=== PATIENT | female | born 1975 | race Caucasian/White ===

== ENCOUNTER 2018-03-13 12:06 | Emergency (ER) | payer OTHER ==
[2018-03-13 12:06] VITALS: BMI 29.0
[2018-03-13 12:25] VITALS: RESP 18; O2SAT 100
--- NOTE | 2018-03-13 12:52 | C.PDOC ---
History Of Present Illness 42 year old female with a history of asthma and a surgical history of cholecystectomy and appendectomy presents to the emergency department with complaints of vaginal bleeding with clots, cramping, suprapubic pain, bilateral lower flank pain, subjective fever and chills for the last two weeks. Patient states that she had her period before Thanksgi, and her bleeding started after her period was over. Patient states that she attempted to get an appointment with a doctor, but did not have an available appointment until June 19. She denies nausea and vomiting. Time Seen by Provider: 03/13/18 12:27 Chief Complaint (Nursing): Female Genitourinary History Per: Patient History/Exam Limitations: no limitations Onset/Duration Of Symptoms: Other (two weeks) Current Symptoms Are (Timing): Still Present Quality Of Discomfort: "Pain" Associated Symptoms: Other (headache). denies: Nausea, Vomiting Past Medical History Reviewed: Historical Data, Nursing Documentation, Vital Signs Vital Signs: Last Vital Signs Temp 99.0 F 03/13/18 12:24 Pulse 84 03/13/18 12:24 Resp 18 03/13/18 12:24 BP 139/85 03/13/18 12:24 Pulse Ox 100 03/13/18 12:24 - Medical History PMH: No Chronic Diseases Denies: Chronic Kidney Disease Surgical History: Appendectomy, Cholecystectomy - [facility] Procedures ENDOSCOPIC DILATION OF AMPULLA AND BILIARY DUCT (12/18/13) ENDOSCOPIC REMOVAL OF STONE(S) FROM BILIARY TRACT (12/18/13) ENDOSCOPIC SPHINCTEROTOMY AND PAPILLOTOMY (12/18/13) LAPAROSCOPIC CHOLECYSTECTOMY (12/18/13) Family History: States: No Known Family Hx - Social History Hx Tobacco Use: Yes Hx Alcohol Use: Yes Hx Substance Use: No - Immunization History Hx Tetanus Toxoid Vaccination: Yes Hx Influenza Vaccination: Yes Hx Pneumococcal Vaccination: Yes Review Of Systems Except As Marked, All Systems Reviewed And Found Negative. Gastrointestinal: Positive for: Abdominal Pain. Negative for: Nausea, Vomiting Genitourinary: Positive for: Vaginal Bleeding Musculoskeletal: Positive for: Back Pain Neurological: Positive for: Headache Physical Exam - Physical Exam Appears: Non-toxic, No Acute Distress Skin: Warm, Dry Head: Atraumatic, Normacephalic Eye(s): bilateral: Normal Inspection, PERRL, EOMI Neck: Normal, Supple Chest: Symmetrical, No Tenderness Cardiovascular: Rhythm Regular, No Murmur Respiratory: No Rales, No Rhonchi, No Wheezing Gastrointestinal/Abdominal: Soft, Tenderness (lower right and left suprapubic tenderness), No Guarding, No Rebound Neurological/Psych: Oriented x3, Normal Speech, Normal Cognition ED Course And Treatment - Laboratory Results Result Diagrams: 03/13/18 13:13 O2 Sat by Pulse Oximetry: 100 (RA) Pulse Ox Interpretation: Normal Medical Decision Making Medical Decision Making: Plan: CBC POC Urine HCG Quantitative Urinalysis US Pelvis US Pelvis/Transvaginal Disposition Counseled Patient/Family Regarding: Studies Performed, Diagnosis, Need For Followup - Disposition Referrals: [facility] at [facility] [Outside] Disposition: HOME/ ROUTINE Disposition Time: 16:00 Condition: STABLE Additional Instructions: Siga con mcmillan doctor, o la clinica. Instructions: Perimenopause Forms: Gen Discharge Inst Marshallese, [facility] (Marshallese) - POA Present On Arrival: None - Clinical Impression Clinical Impression: Perimenopausal menorrhagia - Scribe Statement The provider has reviewed the documentation as recorded by the Scribe (Geraldo Oreilly) Provider Attestation: All medical record entries made by the Scribe were at my direction and perso anel dictated by me. I have reviewed the chart and agree that the record accurately reflects my personal performance of the history, physical exam, medical decision making, and the department course for this patient. I have also personally directed, reviewed, and agree with the discharge instructions and disposition.
[2018-03-13 13:23] LABS: HEMOGLOBIN 12.5 g/dL (11.0-16.0); MEAN CORPUSCULAR HEMOGLOBIN 27.2 pg (27.0-31.0); MEAN CORPUSCULAR HGB CONC 32.8 g/dL (33.0-37.0); MEAN PLATELET VOLUME 9.2 fL (7.2-11.7); RBC 4.6 Mil/uL (3.80-5.20); RED CELL DISTRIBUTION WIDTH 18.1 % (11.5-14.5); WHITE BLOOD COUNT 5.6 K/uL (4.8-10.8)
[2018-03-13 13:32] LABS: HCG,QUALITATIVE URINE NEGATIVE (NEGATIVE)
[2018-03-13 13:38] LABS: SQUAMOUS EPITHIAL 1 /hpf (0-5); URINE BILIRUBIN NEGATIVE (NEGATIVE); URINE BLOOD 2+ (NEGATIVE); URINE CLARITY Clear (Clear); URINE COLOR Yellow (YELLOW); URINE GLUCOSE (UA) NORMAL (Normal); URINE LEUKOCYTE ESTERASE NEG Leu/uL (Negative); URINE PROTEIN NEGATIVE (NEGATIVE); URINE UROBILINOGEN NORMAL mg/dL (0.2-1.0)
[2018-03-13 15:09] VITALS: BP 144/87
--- NOTE | 2018-03-13 15:44 | US ---
Pelvic ultrasound HISTORY: Vaginal bleeding. Comparison: None available. Technique: Real-time sonography was performed through the pelvis utilizing transabdominal and transvaginal techniques Findings: Uterus: 10.7 x 5.2 x 4.2 centimeters. Heterogeneous echotexture. Anteverted. Endometrium is prominent measuring up to 1.3 centimeters. Nabothian cysts noted at the level of the cervix. Trace free fluid noted within the pelvic cul-de-sac. Right ovary: 2.5 x 2.2 x 2.3 centimeters. Normal flow. Left ovary: 2.8 x 2.0 x 2.6 centimeters. Normal flow. Complex cyst with internal septations and/or nodularity measuring 1.3 x 0.7 x 1.7 centimeters. Additional hypoechoic cyst measuring 1.1 x 1.3 x 1.6 centimeters. Impression: Heterogeneous bulky echotexture of the uterus. No discrete fibroid lesions identified. Prominence of the endometrium measuring up to 1.3 centimeters. Clinical correlation. Nabothian cysts noted at the level of the cervix. Trace free fluid within the pelvic cul-de-sac. Left ovarian cysts, one of which is complex measuring up to 1.7 centimeters. 4-6 week interval follow-up may be helpful if clinically indicated.
[2018-03-13 16:21] VITALS: PULSE 72; TEMP 98.7
== END 2018-03-13 16:28 | disposition home or self-care (01) ==
LOC: C.ER 12:06
DX: N92.0 Excessive and frequent menstruation with regular cycle (principal); Z78.0 Asymptomatic menopausal state

== ENCOUNTER 2018-05-19 18:21 | Emergency (ER) | payer OTHER ==
[2018-05-19 18:21] VITALS: BMI 29.0
[2018-05-19] MEDS ORDERED: Sodium Chloride 0.9% 1,000 ML IV ONE (19:16)
--- NOTE | 2018-05-19 19:16 | C.PDOC ---
History Of Present Illness Patient presents to the ER with a complaint of abdominal pain. Patient reports having frequent bowel movements but no diarrhea. Denies nausea or vomiting. Time Seen by Provider: 05/19/18 19:16 Chief Complaint (Nursing): Abdominal Pain History Per: Patient History/Exam Limitations: no limitations Onset/Duration Of Symptoms: Hrs Current Symptoms Are (Timing): Still Present Location Of Pain/Discomfort: RUQ Radiation Of Pain To:: None Quality Of Discomfort: Unable To Describe Associated Symptoms: denies: Nausea, Vomiting, Diarrhea Exacerbating Factors: None Alleviating Factors: None Recent travel outside of the [place]: No Past Medical History Reviewed: Historical Data, Nursing Documentation, Vital Signs Vital Signs: Last Vital Signs Temp 98 F 05/19/18 18:22 Pulse 87 05/19/18 18:22 Resp 18 05/19/18 18:22 BP 125/82 05/19/18 18:22 Pulse Ox 100 05/19/18 18:22 - Medical History PMH: Denies: Chronic Kidney Disease Surgical History: Appendectomy, Cholecystectomy - [facility] Procedures ENDOSCOPIC DILATION OF AMPULLA AND BILIARY DUCT (12/18/13) ENDOSCOPIC REMOVAL OF STONE(S) FROM BILIARY TRACT (12/18/13) ENDOSCOPIC SPHINCTEROTOMY AND PAPILLOTOMY (12/18/13) LAPAROSCOPIC CHOLECYSTECTOMY (12/18/13) Family History: States: No Known Family Hx - Social History Hx Tobacco Use: Yes Hx Alcohol Use: Yes Hx Substance Use: No - Immunization History Hx Tetanus Toxoid Vaccination: Yes Hx Influenza Vaccination: Yes Hx Pneumococcal Vaccination: Yes Review Of Systems Constitutional: Negative for: Fever, Chills Cardiovascular: Negative for: Chest Pain, Palpitations Respiratory: Negative for: Cough, Shortness of Breath Gastrointestinal: Positive for: Abdominal Pain. Negative for: Nausea, Vomiting, Diarrhea Neurological: Negative for: Weakness, Numbness Physical Exam - Physical Exam Appears: Non-toxic Skin: Warm, Dry Head: Normacephalic Oral Mucosa: Moist Chest: Symmetrical, No Tenderness Cardiovascular: Rhythm Regular Respiratory: No Rales, No Rhonchi, No Wheezing Gastrointestinal/Abdominal: Soft, Tenderness (RUQ), No Guarding, No Rebound, Other (Numerous surgical scars) Back: No CVA Tenderness Neurological/Psych: Oriented x3 ED Course And Treatment - Laboratory Results Result Diagrams: 05/19/18 19:26 05/19/18 19:26 O2 Sat by Pulse Oximetry: 100 (Room air) Pulse Ox Interpretation: Normal Progress Note: CT abd/pel, blood work, and urinalysis ordered. IV fluids and pepcid administered. Reevaluation Time: 22:49 Reassessment Condition: Improved Medical Decision Making Medical Decision Making: Upon provider reevaluation patient is feeling better, is medically stable, and requires no further treatment in the ED at this time. Patient will be discharged home with Rx for protonix . Counseling was provided and all questions were answered regarding diagnosis and need for follow up with the referred clinic. There is agreement to discharge plan. Return if symptoms persist or worsen. Disposition Counseled Patient/Family Regarding: Studies Performed, Diagnosis, Need For Followup, Rx Given - Disposition Referrals: [facility] at [facility] [Outside] [facility] [Outside] Disposition: HOME/ ROUTINE Disposition Time: 19:16 Condition: FAIR Additional Instructions: Please return if symptoms recur Prescriptions: Pantoprazole Sodium [Protonix] 40 mg PO DAILY #15 ect Instructions: Acid Reflux (Gastroesophageal Reflux Disease) in Adults, Ovarian Cyst (DC) Forms: [employer] (Danish) Print Language: SWEDISH - Clinical Impression Clinical Impression: Abdominal pain, Ovarian cyst, GERD (gastroesophageal reflux disease), Reflux esophagitis - Scribe Statement The provider has reviewed the documentation as recorded by the Scribcachorro Cgale All medical record entries made by the Liamibcachorro were at my direction and personally dictated by me. I have reviewed the chart and agree that the record accurately reflects my personal performance of the history, physical exam, medical decision making, and the department course for this patient. I have also personally directed, reviewed, and agree with the discharge instructions and disposition.
[2018-05-19] MEDS ORDERED: Sodium Chloride 0.9% 1,000 ML ONE (19:27)
[2018-05-19 19:39] LABS: BASO # 0.1 K/uL (0.0-0.2); BASO % 1.5 % (0.0-2.0); EOS # 0.1 K/uL (0.0-0.7); EOS % 1.9 % (0.0-4.0); HEMOGLOBIN 11.1 g/dL (11.0-16.0); LYMPH # 2.1 K/uL (1.0-4.3); LYMPH % 33.6 % (20.0-40.0); MEAN CELL VOLUME 80.9 fL (81.0-99.0); MEAN CORPUSCULAR HEMOGLOBIN 25.8 pg (27.0-31.0); MEAN CORPUSCULAR HGB CONC 31.9 g/dL (33.0-37.0); MEAN PLATELET VOLUME 9.2 fL (7.2-11.7); MONO # 0.5 K/uL (0.0-0.8); MONO % 7.7 % (0.0-10.0); NEUT # 3.4 K/uL (1.8-7.0); NEUT % 55.3 % (50.0-75.0); NRBC % 0.1 % (0.0-2.0); RBC 4.3 Mil/uL (3.80-5.20); RED CELL DISTRIBUTION WIDTH 17.4 % (11.5-14.5); SQUAMOUS EPITHIAL 1 /hpf (0-5); URINE BILIRUBIN NEGATIVE (NEGATIVE); URINE BLOOD 3+ (NEGATIVE); URINE CLARITY Hazy (Clear); URINE COLOR Yellow (YELLOW); URINE GLUCOSE (UA) NORMAL (Normal); URINE LEUKOCYTE ESTERASE NEG Leu/uL (Negative); URINE PROTEIN NEGATIVE (NEGATIVE); URINE UROBILINOGEN NORMAL mg/dL (0.2-1.0); WHITE BLOOD COUNT 6.1 K/uL (4.8-10.8)
[2018-05-19 19:43] LABS: ALB/GLOB RATIO 1.4 (1.0-2.1); ALBUMIN 4.1 g/dL (3.5-5.0); ALT/SGPT 6 U/L (9-52); AST/SGOT 18 U/L (14-36); BLOOD UREA NITROGEN 17 mg/dL (7-17); CALCIUM 9.2 mg/dl (8.6-10.4); GFR NON-AFRICAN AMERICAN > 60; LIPASE 120 U/L (23-300)
[2018-05-19 19:46] LABS: BARBITURATES, UR NEGATIVE (NEGATIVE); BENZODIAZEPINES, UR NEGATIVE (NEGATIVE); OPIATES, UR NEGATIVE (NEGATIVE); PHENCYCLIDINE, UR NEGATIVE (NEGATIVE)
[2018-05-19 19:47] LABS: PROTHROMBIN TIME 10.4 SECONDS (9.7-12.2)
[2018-05-19 19:49] LABS: HCG,QUALITATIVE URINE NEGATIVE (NEGATIVE)
[2018-05-19] MEDS ORDERED: Iodixanol 320 MG/ML 100 ML BOTTLE IV ONE (20:20)
[2018-05-19 23:17] VITALS: BP 127/77; PULSE 79; RESP 20; TEMP 98.6; O2SAT 98
--- NOTE | 2018-05-20 09:24 | CT ---
CT abdomen and pelvis HISTORY: Abdominal pain. COMPARISON: CT dated 12/18/2013 TECHNIQUE: Multiple contiguous axial images were performed through the abdomen and pelvis with the use of intravenous contrast. Subsequently, sagittal and coronalreformatted images were obtained. This CT exam was performed using one or more of the following dose reduction techniques: Automated exposure control, adjustment of the mA and/or kV according to patient size, and/or use of iterative reconstruction technique. Findings: 2 millimeter subpleural nodule within the right middle lobe on series 3, image 8. Atelectasis at the lung bases. No pleural or pericardial effusion. Mild fatty infiltration of the liver. Punctate hypodensity within the right hepatic lobe on series 3, image 25, too small to adequately characterize. Prior cholecystectomy. Spleen is preserved. Adrenal glands are preserved. Pancreas is preserved. Mild thickening of the distal esophagus which may represent a reflux esophagitis. Clinical correlation. Distended stomach with food substance. Right kidney: Emanating between the medial right hepatic lobe and right kidney is a 1.8 centimeter loculated area of low-attenuation demonstrating a Hounsfield unit attenuation of 18. This is of uncertain clinical etiology and may represent an exophytic right renal cyst/cystic lesion. Correlation with renal ultrasound may be helpful. Alternatively, this may represent some loculated perihepatic ascites. Clinical correlation. Left Kidney: No calculi or hydronephrosis. Urinary bladder is preserved. Heterogeneous uterus with prominent endometrium. Suggestion of a partially exophytic fibroid lesion within the uterus measuring 2.7 centimeters. 3 centimeter left adnexal cyst. Few scattered colonic diverticuli. Focal areas of mild colonic thickening at the level of the cecum as well as the proximal to mid ascending colon with some adjacent mild mesenteric fat stranding and fluid as well as adjacent pericecal lymphadenopathy measuring up to 1.5 centimeters. This may represent a focal colitis and or focal acute diverticulitis. Few scattered areas of underdistention and or mild thickening at the level of the descending and sigmoid colon. Appendix not well visualized. Few shotty para-aortic and inguinal lymph nodes. Degenerative changes in the spine. Discogenic calcifications seen within thoracic spine. Impression: 1. Few scattered colonic diverticuli. Focal areas of mild colonic thickening at the level of the cecum as well as the proximal to mid ascending colon with some adjacent mild mesenteric fat stranding and fluid as well as adjacent pericecal lymphadenopathy measuring up to 1.5 centimeters. This may represent a focal colitis and or focal acute diverticulitis. Few scattered areas of underdistention and or mild thickening at the level of the descending and sigmoid colon. Clinical correlation. 2. Heterogeneous uterus with prominent endometrium. Suggestion of a partially exophytic fibroid lesion within the uterus measuring 2.7 centimeters. 3 centimeter left adnexal cyst. Correlation with pelvic ultrasound may be helpful. 3. Emanating between the medial right hepatic lobe and right kidney is a 1.8 centimeter loculated area of low-attenuation demonstrating a Hounsfield unit attenuation of 18. This is of uncertain clinical etiology and may represent an exophytic right renal cyst/cystic lesion. Correlation with renal ultrasound may be helpful. Alternatively, this may represent some loculated perihepatic ascites. Clinical correlation. Additional findings as above. A preliminary report was generated at 10:40 p.m. on 05/19/[address] Kaleb Arthur from [employer].
== END 2018-05-19 23:17 | disposition home or self-care (01) ==
LOC: C.ER 18:21
DX: K21.0 Gastro-esophageal reflux disease with esophagitis (principal); N83.209 Unspecified ovarian cyst, unspecified side; R10.9 Unspecified abdominal pain; Z72.0 Tobacco use
CPT/HCPCS: 74177; 80053; 80324; 80345; 80346; 80349; 80353; 80358; 80361; 81001; 83690; 83992; 84703; 85025; 85610; 85730; 96361; 96374; 99284; J7030; Q9967

== ENCOUNTER 2018-06-15 22:27 | Emergency (ER) | payer OTHER ==
[2018-06-15 22:27] VITALS: BMI 29.0
[2018-06-15 23:03] VITALS: RESP 20
--- NOTE | 2018-06-15 23:03 | C.PDOC ---
History Of Present Illness 42 year old female presents to the ER complaining of abdominal pain. Patient also reports heavy vaginal bleeding with clots which she notes is similar to previous menstrual periods. She has been seen multiple times in the past for the same complaint, has been taking prescribed motrin for the pain but states she ran out. She notes that her current pain is no worse than her previous pain. She notes that she was told she has endometriosis. She denies any urinary complaints, trauma to her abdomen or rashes. No abnormal vaginal d/c besides current period. Denies fever, chills, nausea, or vomiting. <Jerrell Almeida - Last Filed: 06/16/18 13:11> <Antwan Mir - Last Filed: 06/16/18 05:41> History Per: Patient History/Exam Limitations: no limitations Onset/Duration Of Symptoms: Days Current Symptoms Are (Timing): Still Present Location Of Pain/Discomfort: Suprapubic Radiation Of Pain To:: None Quality Of Discomfort: Unable To Describe Associated Symptoms: denies: Fever, Chills, Nausea, Vomiting Exacerbating Factors: None Alleviating Factors: None Recent travel outside of the [place]: No Abnormal Vaginal Bleeding: No <Jerrell Almeida - Last Filed: 06/16/18 13:11> Time Seen by Provider: 06/15/18 23:02 Chief Complaint (Nursing): Abdominal Pain Past Medical History Vital Signs: Last Vital Signs Temp 98.2 F 06/16/18 04:00 Pulse 68 06/16/18 04:00 Resp 18 06/16/18 04:00 BP 126/63 06/16/18 04:00 Pulse Ox 98 06/16/18 04:00 - [facility] Procedures ENDOSCOPIC DILATION OF AMPULLA AND BILIARY DUCT (12/18/13) ENDOSCOPIC REMOVAL OF STONE(S) FROM BILIARY TRACT (12/18/13) ENDOSCOPIC SPHINCTEROTOMY AND PAPILLOTOMY (12/18/13) LAPAROSCOPIC CHOLECYSTECTOMY (12/18/13) <Antwan Mir - Last Filed: 06/16/18 05:41> Reviewed: Historical Data, Nursing Documentation, Vital Signs Vital Signs: Last Vital Signs Temp 99.2 F 06/15/18 22:44 Pulse 87 06/15/18 22:44 Resp 20 06/15/18 22:44 BP 153/86 H 06/15/18 22:44 Pulse Ox 100 06/15/18 22:44 - Medical History PMH: Denies: Chronic Kidney Disease Surgical History: Appendectomy, Cholecystectomy - [facility] Procedures ENDOSCOPIC DILATION OF AMPULLA AND BILIARY DUCT (12/18/13) ENDOSCOPIC REMOVAL OF STONE(S) FROM BILIARY TRACT (12/18/13) ENDOSCOPIC SPHINCTEROTOMY AND PAPILLOTOMY (12/18/13) LAPAROSCOPIC CHOLECYSTECTOMY (12/18/13) Family History: States: No Known Family Hx - Social History Hx Tobacco Use: Yes Hx Alcohol Use: Yes Hx Substance Use: No - Immunization History Hx Tetanus Toxoid Vaccination: Yes Hx Influenza Vaccination: Yes Hx Pneumococcal Vaccination: Yes <Jerrell Almeida Last Filed: 06/16/18 13:11> Review Of Systems Constitutional: Negative for: Fever, Chills Cardiovascular: Negative for: Chest Pain, Palpitations Respiratory: Negative for: Cough, Shortness of Breath Gastrointestinal: Positive for: Abdominal Pain. Negative for: Nausea, Vomiting, Diarrhea Genitourinary: Negative for: Dysuria Musculoskeletal: Negative for: Back Pain Skin: Negative for: Rash Neurological: Negative for: Weakness, Numbness <Jerrell Almeida Last Filed: 06/16/18 13:11> Physical Exam - Physical Exam Appears: Non-toxic Skin: Normal Color, Warm, Dry Head: Atraumatic, Normacephalic Eye(s): bilateral: Normal Inspection Oral Mucosa: Moist Tongue: Normal Appearing Lips: Normal Appearing Teeth: Normal Dentition Throat: Normal, No Erythema, No Exudate Neck: Normal, Normal ROM, Supple, Other (no meningeal signs) Chest: Symmetrical, No Tenderness Cardiovascular: Rhythm Regular Respiratory: Normal Breath Sounds, No Rales, No Rhonchi, No Wheezing Gastrointestinal/Abdominal: Soft, Tenderness (Right sided suprapubic), No Mass, No Distention, No Guarding, No Rebound, No Ascites Back: Normal Inspection, No CVA Tenderness, No Vertebral Tenderness, No Muscle Spasm, No Paraspinal Tenderness Extremity: Bilateral: Atraumatic Neurological/Psych: Oriented x3, Normal Speech, Normal Cognition <Jerrell Almeida Filed: 06/16/18 13:11> ED Course And Treatment - Laboratory Results Result Diagrams: 06/15/18 23:51 06/15/18 23:51 Lab Results: pO2 34 mm/Hg (30-55) 06/15/18 23:57 VBG pH 7.37 (7.32-7.43) 06/15/18 23:57 VBG pCO2 41 mmHg (40-60) 06/15/18 23:57 VBG HCO3 22.8 mmol/L 06/15/18 23:57 VBG Total CO2 25.0 mmol/L (22-28) 06/15/18 23:57 VBG O2 Sat (Calc) 63.0 % (40-65) 06/15/18 23:57 VBG Base Excess -1.5 mmol/L (0.0-2.0) L 06/15/18 23:57 VBG Potassium 4.3 mmol/L (3.6-5.2) 06/15/18 23:57 Sodium 141.0 mmol/l (132-148) 06/15/18 23:57 Chloride 110.0 mmol/L (98-107) H 06/15/18 23:57 Glucose 115 mg/dl (65-105) H 06/15/18 23:57 Lactate 1.6 mmol/L (0.7-2.1) 06/15/18 23:57 Total Bilirubin 0.7 mg/dL (0.2-1.3) 06/15/18 23:51 AST 64 U/L (14-36) H D 06/15/18 23:51 ALT 28 U/L (9-52) 06/15/18 23:51 Alkaline Phosphatase 73 U/L (38-126) 06/15/18 23:51 Total Protein 8.4 g/dL (6.3-8.3) H 06/15/18 23:51 Albumin 4.6 g/dL (3.5-5.0) 06/15/18 23:51 Globulin 3.8 gm/dL (2.2-3.9) 06/15/18 23:51 Albumin/Globulin Ratio 1.2 (1.0-2.1) 06/15/18 23:51 Lipase 90 U/L (23-300) 06/15/18 23:51 Urine Color Yellow (YELLOW) 06/16/18 00:27 Urine Clarity Hazy (Clear) 06/16/18 00:27 Urine pH 5.0 (5.0-8.0) 06/16/18 00:27 Ur Specific [place] 1.027 (1.003-1.030) 06/16/18 00:27 Urine Protein Negative mg/dL (NEGATIVE) 06/16/18 00:27 Urine Glucose (UA) Normal mg/dL (Normal) 06/16/18 00:27 Urine Ketones Negative mg/dL (NEGATIVE) 06/16/18 00:27 Urine Blood 2+ (NEGATIVE) H 06/16/18 00:27 Urine Nitrate Negative (NEGATIVE) 06/16/18 00:27 Urine Bilirubin Negative (NEGATIVE) 06/16/18 00:27 Urine Urobilinogen Normal mg/dL (0.2-1.0) 06/16/18 00:27 Ur Leukocyte Esterase Neg Kareem/uL (Negative) 06/16/18 00:27 Urine WBC (Auto) 3 /hpf (0-5) 06/16/18 00:27 Urine RBC (Auto) 16 /hpf (0-3) H 06/16/18 00:27 Ur Squamous Epith Cells 2 /hpf (0-5) 06/16/18 00:27 Pulse Ox Interpretation: Normal Reevaluation Time: 05:42 Reassessment Condition: Improved <Antwan Mir - Last Filed: 06/16/18 05:41> - Laboratory Results Result Diagrams: 06/15/18 23:51 06/15/18 23:51 O2 Sat by Pulse Oximetry: 100 (Room air) Pulse Ox Interpretation: Normal <Jerrell Almeida - Last Filed: 06/16/18 13:11> Medical Decision Making Medical Decision Makin yr old female p/w chronic suprapubic pain and menstrual type pain. She notes 6 months of pain every time around this time of month. She also noted normal vaginal bleeding, no worse than normal. She did not take any pain meds because of the pain. No rash or ulcers noted per pt. No urinary complaints or back pain. NO RLQ or LLQ or periumbilical pain. Blood work, CT abd/pel, transvaginal US, and urinalysis ordered. IV fluids and tylenol administered. [address] Mir pending imaging, UA and reassessment. <Jerrell Almeida - Last Filed: 06/16/18 13:11> Disposition Counseled Patient/Family Regarding: Studies Performed, Diagnosis, Need For Followup, Rx Given - Disposition Disposition Time: 01:00 <Antwan Mir - Last Filed: 06/16/18 05:41> <Jerrell Almeida - Last Filed: 06/16/18 13:11> - Disposition Referrals: Yonas Zayas MD [Staff Provider] - Disposition: HOME/ ROUTINE Condition: FAIR Additional Instructions: Por favor regrese si los sntomas recurren. Prescriptions: traMADol [Ultram] 50 mg PO TID PRN #15 tab PRN Reason: Pain, Severe (8-10) Instructions: Kidney Stones (DC), Renal Colic (DC) Forms: [employer] (Sami) Print Language: RWANDAN - Clinical Impression Clinical Impression: Abdominal pain, Kidney stone on right side, Renal colic on right side - Scribe Statement The provider has reviewed the documentation as recorded by the Scribe Dc Cagle All medical record entries made by the Scribe were at my direction and personally dictated by me. I have reviewed the chart and agree that the record accurately reflects my personal performance of the history, physical exam, medical decision making, and the department course for this patient. I have also personally directed, reviewed, and agree with the discharge instructions and disposition. <Jerrell Almeida - Last Filed: 06/16/18 13:11>
[2018-06-15] MEDS ORDERED: Sodium Chloride 0.9% 1,000 ML IV ONE ×2 (23:05)
[2018-06-15 23:54] LABS: BASO # 0.1 K/uL (0.0-0.2); BASO % 1.1 % (0.0-2.0); EOS # 0.1 K/uL (0.0-0.7); EOS % 1.5 % (0.0-4.0); HEMOGLOBIN 9.6 g/dL (11.0-16.0); LYMPH # 2.7 K/uL (1.0-4.3); MEAN CELL VOLUME 77.4 fL (81.0-99.0); MEAN CORPUSCULAR HEMOGLOBIN 24.2 pg (27.0-31.0); MEAN CORPUSCULAR HGB CONC 31.3 g/dL (33.0-37.0); MEAN PLATELET VOLUME 9.1 fL (7.2-11.7); MONO % 9.4 % (0.0-10.0); NEUT # 6.4 K/uL (1.8-7.0); NRBC % 0.1 % (0.0-2.0); RBC 3.99 Mil/uL (3.80-5.20); RED CELL DISTRIBUTION WIDTH 18.4 % (11.5-14.5); WHITE BLOOD COUNT 10.3 K/uL (4.8-10.8)
[2018-06-16 00:08] LABS: VENOUS BLOOD GAS BASE EXCESS -1.5 mmol/L (0.0-2.0); VENOUS BLOOD GAS PCO2 41 mmHg (40-60); VENOUS BLOOD GAS PO2 34 mm/Hg (30-55); VENOUS BLOOD PH 7.37 (7.32-7.43)
[2018-06-16 00:32] LABS: BLOOD UREA NITROGEN 15 mg/dL (7-17)
[2018-06-16 00:33] LABS: GFR NON-AFRICAN AMERICAN > 60
[2018-06-16 00:34] LABS: ALB/GLOB RATIO 1.2 (1.0-2.1); ALBUMIN 4.6 g/dL (3.5-5.0); ALT/SGPT 28 U/L (9-52); AST/SGOT 64 U/L (14-36); CALCIUM 8.9 mg/dl (8.6-10.4); LIPASE 90 U/L (23-300)
[2018-06-16 01:03] LABS: SQUAMOUS EPITHIAL 2 /hpf (0-5); URINE BILIRUBIN NEGATIVE (NEGATIVE); URINE CLARITY Hazy (Clear); URINE COLOR Yellow (YELLOW); URINE GLUCOSE (UA) NORMAL (Normal); URINE LEUKOCYTE ESTERASE NEG Leu/uL (Negative); URINE PROTEIN NEGATIVE (NEGATIVE); URINE UROBILINOGEN NORMAL mg/dL (0.2-1.0)
[2018-06-16 01:05] LABS: URINE BLOOD 2+ (NEGATIVE)
[2018-06-16] MEDS ORDERED: Morphine 4 MG/ML VIAL ONE (01:08)
[2018-06-16] MEDS ORDERED: Lidocaine 136 MG in Sodium Chloride 0.9% 100 ML IV STA (03:35)
--- NOTE | 2018-06-16 08:43 | US ---
Date of service: 06/16/2018 HISTORY: pelvic pain COMPARISON: None available. TECHNIQUE: Transabdominal and transvaginal pelvic ultrasound was performed. FINDINGS: UTERUS: Measures 11.1 x 6.0 x 7.0 cm. Anteverted and mildly enlarged. There is a 3.3 x 2.4 x 3.3 cm subserosal fundal fibroid. ENDOMETRIUM: Measures 11 mm in diameter. There is fluid in the endometrial canal. CERVIX: There is complex fluid in the endocervical canal which is distended. There is a 3.4 x 1.7 x 2.6 cm echogenic polypoid mass projecting in the anterior endocervical cavity without significant flow on color Doppler imaging. RIGHT OVARY: 1.9 x 2.4 x 2.0. LEFT OVARY: Not visualized. FREE FLUID: No significant free fluid noted. OTHER FINDINGS: None. IMPRESSION: Examination was technically limited as the patient was in pain and could not cooperate for endo vaginal examination. 1. 3.3 x 2.6 x 3.3 cm subserosal fundal fibroid. 2. Fluid in the endometrial canal. Also noted is complex/hemorrhagic fluid in the endocervical canal which is distended. 3.4 x 1.3 x 2.6 cm polypoid mass in the anterior endocervical canal without significant flow is nonspecific, the differential considerations include blood clot or hemorrhagic mass. Clinical follow-up is advised and if clinically indicated correlation with MRI without and with intravenous contrast may be performed for definitive evaluation. A preliminary report was provided by [employer].
[2018-06-16 10:11] VITALS: BP 124/61; PULSE 74; TEMP 98.5
--- NOTE | 2018-06-16 12:39 | CT ---
PROCEDURE: CT Abdomen and Pelvis without Oral or IV contrast. HISTORY: R pelvic pain ?stone COMPARISON: CT abdomen and pelvis with IV contrast performed 05/19/18 TECHNIQUE: Contiguous axial images of the abdomen and pelvis. No oral or IV contrast administered. Coronal and Sagittal reformats generated and reviewed. Radiation dose: Total exam DLP = 1007.34 mGy-cm. This CT exam was performed using one or more of the following dose reduction techniques: Automated exposure control, adjustment of the mA and/or kV according to patient size, and/or use of iterative reconstruction technique. FINDINGS: There is limited evaluation of the solid organs without the administration of IV contrast. LOWER THORAX: No visible consolidation, pleural effusion, or pneumothorax. LIVER: Unremarkable unenhanced appearance. GALLBLADDER AND BILE DUCTS: Cholecystectomy clips. PANCREAS: Unremarkable unenhanced appearance. SPLEEN: Unremarkable unenhanced appearance. ADRENALS: Unremarkable unenhanced appearance. KIDNEYS AND URETERS: No hydronephrosis or obstructing renal calculus. Small cystic focus between the medial right hepatic lobe and right kidney favored to represent exophytic right renal cyst/cystic lesion. Renal ultrasound may be considered for further evaluation if indicated. BLADDER: Urinary bladder appears thick walled. REPRODUCTIVE: Lobulated uterus presumably due to fibroid. Indeterminate prominence/hypodensity at the level of the cervix. APPENDIX: The appendix is not identified. No secondary signs of acute appendicitis. BOWEL: The stomach is nondistended. Lack of oral contrast limits evaluation for bowel pathology. The bowel loops appear within normal limits of caliber without evidence of intestinal obstruction. Diverticulosis without CT evidence of acute diverticulitis. PERITONEUM: No significant free fluid. No definite free air. LYMPH NODES: No bulky lymphadenopathy identified. VASCULATURE: Mild atherosclerotic calcifications of the aorta. No aortic aneurysm. BONES: No acute osseous abnormality is detected. OTHER FINDINGS: None. IMPRESSION: No obstructing calculus or hydronephrosis identified. Punctate nonobstructing bilateral renal calculi. Small cystic focus between the medial right hepatic lobe and right kidney favored to represent exophytic right renal cyst/cystic lesion. Renal ultrasound may be considered for further evaluation if indicated. Probable fibroid uterus. Indeterminate prominent/hypodensity at the level of the cervix. Please refer to pelvic ultrasound for more detailed discussion of findings. Diverticulosis without CT evidence of acute diverticulitis. Preliminary impression was provided by [employer]. Study marked for PA review.
[2018-06-16 13:10] VITALS: O2SAT 100
== END 2018-06-16 06:16 | disposition home or self-care (01) ==
LOC: C.ER 22:27
DX: N20.0 Calculus of kidney (principal); R10.2 Pelvic and perineal pain; Z72.0 Tobacco use
CPT/HCPCS: 74176; 76830; 76856; 80053; 81001; 81025; 82803; 83690; 85025; 96361; 96374; 99284; J2001; J2270; J7030